=== PATIENT | female | born 1990 | race Caucasian/White ===

== ENCOUNTER 2020-06-29 09:39 | Emergency (ER) | payer MEDICAID, SELFPAY ==
--- NOTE | 2020-06-29 10:38 | CT ---
CT Brain WO Con: 06/29/2020 10:25 AM CLINICAL HISTORY: History of fall 4 days ago with right arm and right leg pain. IMAGING TECHNIQUE: Multiple CT images were obtained of the brain without IV contrast. COMPARISON: October 31, 2015 FINDINGS: BRAIN: Evidence of acute infarct: None. Evidence of chronic ischemic change:None. Evidence of intracranial hemorrhage: None. Evidence of brain volume loss:None. Evidence of midline shift: Third ventricle and septum pellucidum are midline. Ventricles: Normal. No hydrocephalus. SKULL: Intact. VISUALIZED PARANASAL SINUSES: Clear. MASTOID AIR CELLS: Clear. EXTRACRANIAL SOFT TISSUES: Normal. IMPRESSION: No acute intracranial abnormality.
[2020-06-29] MEDS ORDERED: Ketorolac Tromethamine 30 MG/ML VIAL ONE (10:39)
--- NOTE | 2020-06-29 10:39 | CT ---
Exam: CT cervical spine without contrast HISTORY: Trauma. Pain. COMPARISON: None FINDINGS: No craniocervical dissociation. Appropriate alignment of the lateral masses of C1 and C2. Intact odon toid process Appropriate alignment of the facets. Soft tissue neck structures: No mass, lymphadenopathy or hematoma. No prevertebral soft tissue swelli ng. Upper mediastinum and lung apices: Unremarkable Central spinal canal: Neural foramina and central spinal canal are patent. Evaluation is limited by t echnique Vertebral bodies: Cervical spine vertebral body height is maintained. No fracture. IMPRESSION: 1. No cervical spine fracture.
--- NOTE | 2020-06-29 10:53 | RAD ---
AP view of the pelvis INDICATION: History of ground-level fall 4 days ago with right arm and right leg numbness COMPARISON: None. FINDINGS: Bones: No acute fracture or subluxation is evident. Bone mineralization appears within normal limits. Hips: Intact. SI joints and symphysis pubis: Normal appearing. Intrapelvic contents: Within normal limits. IMPRESSION: No acute osseous abnormality.
--- NOTE | 2020-06-29 10:56 | RAD ---
XR Lumbar Spine 2 Or 3 View: 06/29/2020 10:32 AM INDICATION: Ground-level fall with back pain COMPARISON: None FINDINGS: Fracture: None. Alignment: There is levoscoliosis centered at L2 Degenerative Change: No appreciable. Bone Mineralization:Normal Soft tissues: No acute abnormality. IMPRESSION: Normal lumbar radiographs.
--- NOTE | 2020-06-29 11:00 | RAD ---
XR Thoracic Spine 2 View: 06/29/2020 10:32 AM Ground level fall with back pain right arm and right leg pain with numbness COMPARISON: None FINDINGS: Fracture: None. Alignment: There is dextroscoliosis involving the thoracic spine. Degenerative Change: No appreciable. Prevertebral soft tissues: There are scattered vascular calcifications involving the abdominal aorta. Visualized bowel gas pattern is unremarkable.. IMPRESSION: No acute fracture or subluxation demonstrated. Mild dextroscoliosis of the thoracic spine.
== END 2020-06-29 11:22 | disposition home or self-care (01) ==
LOC: EEVIPCON 09:39 → ERS 09:39
DX: M54.12 Radiculopathy, cervical region (principal); M54.41 Lumbago with sciatica, right side; W01.0XXA Fall on same level from slipping, tripping and stumbling without subsequent striking against object, initial encounter; F17.210 Nicotine dependence, cigarettes, uncomplicated
CPT/HCPCS: 70450; 72070; 72100; 72125; 72170; 96372; J1885